=== PATIENT | male | born 2005 | race Caucasian/White ===

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

== ENCOUNTER 2024-01-25 17:06 | Emergency (ER) | payer OTHER ==
[~2024-01-25] VITALS: Ht 175.3 cm; Wt 74.8 kg
[2024-01-25 17:10] VITALS: BP 135/71
[2024-01-25] MEDS ORDERED: FentaNYL Citrate 50 MCG/ML 2 ML Injection IV ONE (17:50)
== END 2024-01-25 19:03 | disposition home or self-care (01) ==
LOC: ER 17:06
DX: S43.004A Unspecified dislocation of right shoulder joint, initial encounter (principal); X50.3XXA Overexertion from repetitive movements, initial encounter
CPT/HCPCS: 23650; 73030; 99283-25; J3010